=== PATIENT | female | born 1970 | race Caucasian/White ===

== ENCOUNTER → 2017-10-14 | Outpatient (CLI) | payer OTHER | END | disposition home or self-care (01) | LOC: CDC 13:17 | DX: Z01.810 Encounter for preprocedural cardiovascular examination (principal); K42.9 Umbilical hernia without obstruction or gangrene | CPT/HCPCS: 93000 ==

== ENCOUNTER 2017-10-21 07:57 | Day surgery (SDC) | payer OTHER ==
[~2017-10-21] VITALS: Ht 160 cm; Wt 100.0 kg
[~2017-10-21 07:57] MED LIST: ALEVE220 MG PO; MUCINEX600 MG PO; NASONEX17 GM BOTH NARES; PEPCID COMPLET1 EACH PO; PEPCID20 MG PO; SINGULAIR10 MG PO; SUDAFED PE PRE1 EAC3 PO; SYMBICORT60 INHALA1 IH; VALTREX50 MG/ML PO; VENTOLIN HFA18 GM IH; ZYRTEC10 M3 PO; [UNRECOGNIZED DRUG - OTHER] TP
[2017-10-21 08:26] VITALS: BP 135/87
[2017-10-21] MEDS ORDERED: PERCOCET 5/31 TABLET PO (12:42)
[2017-10-21 15:10] VITALS: BP 115/69
[2017-10-21 16:08] VITALS: BP 122/63
[2017-10-21 18:08] VITALS: BP 121/72
== END 2017-10-21 18:05 | disposition home or self-care (01) ==
LOC: SDC 07:57
PROC: 0WUF4JZ Supplement Abdominal Wall with Synthetic Substitute, Percutaneous Endoscopic Approach (ICD-10-PCS; principal; 2017-10-21)
DX: K42.0 Umbilical hernia with obstruction, without gangrene (principal); E66.01 Morbid (severe) obesity due to excess calories; Z68.39 Body mass index [BMI] 39.0-39.9, adult; K21.9 Gastro-esophageal reflux disease without esophagitis; R73.9 Hyperglycemia, unspecified; J45.909 Unspecified asthma, uncomplicated; Z88.0 Allergy status to penicillin; Z82.49 Family history of ischemic heart disease and other diseases of the circulatory system; Z82.5 Family history of asthma and other chronic lower respiratory diseases; Z82.61 Family history of arthritis; Z83.3 Family history of diabetes mellitus; Z80.3 Family history of malignant neoplasm of breast
CPT/HCPCS: 87641; C1781; J0131; J0690; J1170; J1885; J3010